=== PATIENT | female | born 1985 | race Caucasian/White ===

== ENCOUNTER 2021-09-18 21:34 | Emergency (ER) | payer OTHER ==
[~2021-09-18] VITALS: Ht 172.7 cm; Wt 113.6 kg
[2021-09-18] MEDS ORDERED: CYMB60CA4 PO (21:57)
[2021-09-18] MEDS ORDERED: LISI10TA22 PO (21:57)
[2021-09-18] MEDS ORDERED: OMEP40CA4 PO (21:57)
[2021-09-18] MEDS ORDERED: PROAAER10 INH (22:02)
[2021-09-18] MEDS ORDERED: IRON65TA2 PO (22:02)
[2021-09-18] MEDS ORDERED: SING10TA32 PO (22:02)
[2021-09-18] MEDS ORDERED: IBUPROFEN 800 MG TAB PO ONE (23:05)
[2021-09-18] MEDS ORDERED: CLINDAMYCIN 150MG CAPSULE PO ONE (23:35)
[2021-09-18] MEDS ORDERED: BACTRIM 160MG/800MG DS TAB PO ONE (23:35)
[2021-09-18] MEDS ORDERED: CLEO300C2 PO (23:45)
[2021-09-18] MEDS ORDERED: BACT800T5 PO (23:45)
[2021-09-19 00:11] VITALS: BP 142/80
== END 2021-09-19 00:20 | disposition home or self-care (01) ==
LOC: M ED 21:34
DX: S51.851A Open bite of right forearm, initial encounter (principal); W55.01XA Bitten by cat, initial encounter; Y92.099 Unspecified place in other non-institutional residence as the place of occurrence of the external cause; Y93.9 Activity, unspecified; Y99.9 Unspecified external cause status; J45.909 Unspecified asthma, uncomplicated; G47.33 Obstructive sleep apnea (adult) (pediatric); Z88.0 Allergy status to penicillin; Z91.013 Allergy to seafood; Z91.018 Allergy to other foods; Z91.040 Latex allergy status